=== PATIENT | male | born 1975 | race Caucasian/White ===

== ENCOUNTER 2022-04-19 20:04 | Emergency (ER) | payer OTHER ==
[~2022-04-19] VITALS: Ht 165.1 cm; Wt 80.7 kg
--- NOTE | 2022-04-19 20:50 | NUR ---
pt in room 4a c/o non radiating c/p x 3 days.
--- NOTE | 2022-04-19 21:46 | NUR ---
pt currently denies c/p. v/s as recorded.
[2022-04-19 21:51] LABS: HEMATOCRIT 51.8 % (36.7-47.1); MEAN CORPUSCULAR VOLUME 85.7 fL (73.0-96.2); PLATELET COUNT (AUTO) 187 K/uL (152-348)
[2022-04-19] MEDS ORDERED: NITROGLYCERIN 0.4 MG/TAB BOTTLE SL ONE (22:00)
[2022-04-19] MEDS ORDERED: ASPIRIN 81 MG TAB.CHEW PO ONE (22:00)
[2022-04-19 22:08] LABS: CARBON DIOXIDE 28 mmol/L (21-32); CHLORIDE 102 mmol/L (98-107); CREATININE 0.8 mg/dL (0.6-1.3); GLUCOSE 239 mg/dL (74-106); POTASSIUM 4.2 mmol/L (3.5-5.1); UREA NITROGEN, BLOOD 16 mg/dL (7-18)
--- NOTE | 2022-04-19 22:12 | NUR ---
order for ntg was held pt denies c/p at this time. informed Dr. Velasquez.
[2022-04-19] MEDS ORDERED: ASPIRIN 81 MG TAB.CHEW ONE (22:13)
[2022-04-19 22:17] LABS: ALANINE AMINOTRANSFERASE 40 U/L (16-63); ALKALINE PHOSPHATASE 71 U/L (50-136); ASPARTATE AMINOTRANSFERASE 13 U/L (15-37); BILIRUBIN,DIRECT 0.1 mg/dL (0.0-0.2); BILIRUBIN,TOTAL 0.5 mg/dL (0.2-1.0); TOTAL PROTEIN, SERUM 6.7 g/dL (6.4-8.2)
--- NOTE | 2022-04-19 22:51 | NUR ---
Dr. Velasquez spoke with Dr. Mejia that pt will be accepted to [facility].
--- NOTE | 2022-04-19 23:25 | NUR ---
[facility] on the phone speaking with Dr. Velasquez.
--- NOTE | 2022-04-20 01:20 | NUR ---
Bo pt's called for update. [phone].
--- NOTE | 2022-04-20 01:30 | NUR ---
pt to go to [facility] for admission room 3213 number for report [phone] Stanton. [facility] will arrive between 0230 to 0300 for transport.
--- NOTE | 2022-04-20 01:59 | NUR ---
report was called to Yolanda PETERSON pt to go to [facility] for continued observation room 3213.
--- NOTE | 2022-04-20 02:16 | NUR ---
[facility], 402 Nurse Flavio for transport to [facility].
== END 2022-04-20 02:38 | disposition short-term general hospital (02) ==
LOC: ER 20:13
DX: R07.2 Precordial pain (principal); R00.0 Tachycardia, unspecified; D72.829 Elevated white blood cell count, unspecified; Z20.822 Contact with and (suspected) exposure to COVID-19; F17.210 Nicotine dependence, cigarettes, uncomplicated
CPT/HCPCS: 36415; 71045; 84484; 85025; 93005; A4663